=== PATIENT | female | born 1980 | race Caucasian/White ===

== ENCOUNTER 2019-09-05 14:33 | Emergency (ER) | payer OTHER ==
[~2019-09-05] VITALS: Ht 162.6 cm; Wt 140.6 kg
[~2019-09-05 14:33] MED LIST: CYCLOBENZAPRINE10 MG PO; FLEXERIL PO; MEDROLDOSEPACK PO; NOHOMEMEDICATIONS; NORCO 7.5-3251 EACH PO; PERCOCET 5-3251 EACH PO
[2019-09-05 15:12] LABS: INFLUENZA A ANTIGEN Negative (Negative); INFLUENZA B ANTIGEN Negative (Negative)
[2019-09-05] MEDS ORDERED: VENTOLIN HFA 1818 GM INH ×2 (15:28→15:33)
[2019-09-05 16:02] VITALS: BP 125/75
== END 2019-09-05 16:02 | disposition home or self-care (01) ==
LOC: M.ERS 14:33
PROVIDERS: Nurse Practitioner Family
DX: J06.9 Acute upper respiratory infection, unspecified (principal); F17.210 Nicotine dependence, cigarettes, uncomplicated; Z88.5 Allergy status to narcotic agent; Z87.442 Personal history of urinary calculi